=== PATIENT | female | born 2005 | race Caucasian/White ===

== ENCOUNTER 2024-07-20 09:01 | Emergency (ER) | payer BC ==
[~2024-07-20] VITALS: Ht 157.5 cm; Wt 59.1 kg
[2024-07-20 09:39] VITALS: TEMP 98.5
[2024-07-20] MEDS ORDERED: PRILOTC PO (11:46)
[2024-07-20] MEDS ORDERED: ZYRTEC 10MG10 MG PO (11:47)
[2024-07-20] MEDS ORDERED: NATURAL IRON65 MG PO (11:47)
[2024-07-20 11:56] LABS: BASO % 0.4 % (0.0-2.0); EOS % 0.3 % (0.0-4.0); GRAN # 5.6 K/mm3 (1.4-6.5); GRAN % 58.3 % (42.2-75.2); HEMATOCRIT 37.9 % (35.0-45.0); LYMPH # 3.1 K/mm3 (1.2-3.4); LYMPH % 32.8 % (20.0-51.0); MEAN CELL VOLUME 91 fl (80.0-95.0); MEAN CORPUSCULAR HEMOGLOBIN 31 pg (26-32); MEAN CORPUSCULAR HGB CONC 34 g/dl (33.0-37.0); MEAN PLATELET VOLUME 10.5 fl (7.4-10.4); MONO # 0.8 K/mm3 (0.1-0.6); MONO % 7.9 % (1.7-9.3); PLATELET COUNT 385 K/mm3 (130-400); RED BLOOD COUNT 4.17 M/mm3 (4.10-5.30); REDCELL DISTRIBUTION WIDTH-CV 12.9 % (11.5-14.5)
[2024-07-20 12:20] LABS: ALBUMIN 4.1 g/dL (3.5-5.0); BILIRUBIN,TOTAL 0.8 mg/dL (0.2-1.2); C-REACTIVE PROTEIN 0.21 mg/dL (0.00-0.50); CALCIUM 9.8 mg/dL (8.4-10.2); CREATININE, serum 0.72 mg/dL (0.57-1.11)
[2024-07-20 13:31] VITALS: BP 103/77; PULSE 95
== END 2024-07-20 13:31 | disposition home or self-care (01) ==
LOC: COL.ER 09:01
PROVIDERS: Emergency Medicine
DX: K92.2 Gastrointestinal hemorrhage, unspecified (principal)